=== PATIENT | female | born 1960 | race Caucasian/White ===

== ENCOUNTER 2016-08-31 10:28 | Day surgery (SDC) | payer OTHER ==
--- NOTE | 2016-08-23 12:07 | GHP ---
[f rep st] PREOP HISTORY AND PHYSICAL DATE OF SURGERY: Will be 08/31/2016 at 12:00 p.m. SURGERY TO BE PERFORMED: Hysteroscopy, dilation and curettage, polypectomy with morcellator. DIAGNOSIS: Postmenopausal bleeding and endometrial polyp. SURGEON: Dr. Anali Mabry. HISTORY OF PRESENT ILLNESS: The patient is a 56-year-old, 1, para 1-0-0 -1, who has been postmenopausal since 2011. She was doing well, she is not on any systemic hormone replacement therapy, when she began having an episode of vaginal bleeding approximately 2 weeks ago. The bleeding started and it was heavy, bright red like a period, needing to use a pad for several days. No clots. No cramps. Then it turned into a slight trickle and spotting. She had an ultrasound for evaluation. The ultrasound revealed a large hypoechoic mass in the endometrium that was 2.0 x 1.8 x 1.8 cm. It had a feeder vessel. It looked like an endometrial polyp. Other than that, her ultrasound was normal. Overall, endometrial thickness was 1.25 cm. Bilateral ovaries were normal. There was no free fluid. Therefore, the recommendation is to proceed with hysteroscopy, dilation and curettage, polypectomy for diagnosis and treatment of her postmenopausal bleeding. Patient has had no gynecological problems prior to this. She had a normal menstrual triad, a normal menstrual cycle throughout her life until she stopped having them in 2011. She had mild menopausal systemic symptoms and declined hormone replacement therapy, systemic. Two years ago she developed significant vulvovaginal atrophy and dyspareunia, and she was started on topical Estrace cream, which has helped her dramatically. She continues to use this 2 times a week. But, she has not had any bleeding episodes prior to last week or any other indications of problems. PAST OBSTETRICAL HISTORY: She had 1 vaginal delivery of a viable male who was 2 pounds. He was delivered secondary to severe preeclampsia at 28 weeks. That was her only . PAST MEDICAL HISTORY: Significant for hyperlipidemia, which she has controlled with atorvastatin, and Prilosec which she takes for GERD, and the atrophic vaginitis. Those are her only medical problems. SURGICAL HISTORY: She has a history of a cholecystectomy in 2004. She had Mohs surgery on her face last December for a basal cell. No other surgical history. ALLERGIES: Include Nexium, which she gets stomach upset. CURRENT MEDICATIONS: Include: Atorvastatin 10 mg daily. Prilosec over-the- counter. Multivitamins. Estrace cream 1 g 2 times a week. SOCIAL HISTORY: She is . She lives with her and her 19-year- old son. She denies tobacco, alcohol, and drug use. She has moderate caffeine use. 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 FAMILY HISTORY: Her dad of coronary artery disease. Her mother of Alzheimer's and dementia complications. No cancer history in the family or any other significant family history. REVIEW OF SYSTEMS: A 10-point review of systems is negative. The only thing significant is for postmenopausal bleeding episodes and spotting. She has negative systemic symptoms, cardiovascular systems, respiratory symptoms, gastrointestinal symptoms, psychological symptoms, skin problems, or any other complaints. OBJECTIVE: VITAL SIGNS: Today, her height is 5 feet 4-1/2 inches. Weight is 121. Blood pressure 102/68 with a BMI of 20. GENERAL: She is a well-developed , well-nourished white female. No acute distress. LUNGS: Clear to auscultation bilaterally. HEART: Regular rate and rhythm. No murmurs. ABDOMEN: Soft, nontender, nondistended. Normal bowel sounds. PELVIC: Normal external genitalia. Mild vaginal atrophy. Normal cervix. No bleeding visualized. Uterus is mobile, small, anteverted, anteflexed. No mass is palpated. No adnexal masses palpated. Nontender. EXTREMITIES: Normal. ASSESSMENT/PLAN: A 56-year-old, 1, para 1-0-0-1, with an episode of postmenopausal bleeding. Ultrasound significant for a large endometrial polyp. This needs to be removed for definitive diagnosis, as well as treatment for her postmenopausal bleeding. The patient was consented today for hysteroscopy, dilation and curettage, and polypectomy. She understood the risks and benefits of the procedure. The risks including bleeding, infection, damage to uterus including possible risk of perforation, damage to other organs if perforation were to occur, risk of electrolyte imbalances and need for additional procedures at a later time. She understood these risks and benefits and agreed to proceed. /[id number]/MODL MTDD
[2016-08-31] MEDS ORDERED: LR 1,000 ML IV ONE (11:06)
[2016-08-31] MEDS ORDERED: SCOPOLAMINE HYDROBROMIDE 1.5 MG PATCH TD ONE (11:30)
[2016-08-31] MEDS ORDERED: fentaNYL 100 MCG/2 ML INJ ONE (11:55)
[2016-08-31] MEDS ORDERED: SILVER NITRATE APPLICATOR 1 APPL TP ONE ×2 (11:59→13:26)
[2016-08-31] MEDS ORDERED: MIDAZOLAM 2 MG/2 ML VIAL ONE (12:06)
--- NOTE | 2016-08-31 19:00 | GOP ---
[f rep st] OPERATIVE REPORT DATE OF OPERATION: 08/31/2016 SURGEON: Anali Mabry MD ANESTHESIA: General with LMA. ANESTHESIOLOGIST: Norm Catalan MD PREOPERATIVE DIAGNOSIS: Postmenopausal bleeding and endometrial polyp. POSTOPERATIVE DIAGNOSIS: Preoperative diagnosis postoperative and likely endometrial submucosal fib roid. PROCEDURE PERFORMED: Hysteroscopy, dilation and curettage, and myomectomy with morcellator. FINDINGS: INDICATIONS: Ninoska is a 56-year-old, 1, para 1-0-0-1, who has been postmenopausal since . She was doing well, was not symptomatic, and not on hormone replacement therapy, when she began having episodes of vaginal bleeding approximately 2 weeks prior to presentation. Bleeding started h eavy, bright red, like a period; needed to use a pad for several days. No clots. No cramps. Then it turned into spotting. She had an ultrasound for evaluation. Ultrasound revealed a large hypoech oic mass in the endometrium that was 2.0 x 1.8 x 1.8 cm with a feeder vessel; appeared to be an endo metrial polyp. Other than that, ultrasound was normal. Overall endometrial thickness was 1.25 cm, and ovaries were fine. Because of the mass in a postmenopausal female, the recommendation was made to proceed with a hysteroscopy, D and C, and polypectomy with morcellator for diagnosis and treatmen t. Patient was consented for the procedure. She understood the risks and benefits with the risks i ncluding bleeding, infection, damage to the uterus, including possible risk of perforation with risk of injury to other organs if perforation were to occur, risk of electrolyte abnormalities, and need for additional procedures. She understood these risks and benefits and agreed to proceed. DESCRIPTION OF PROCEDURE: Patient was taken to the operating room where she was placed under genera l anesthesia, and an LMA was placed without difficulty. She was prepped and draped in the dorsal li thotomy position, and she had previously drained her bladder. After a WHO time-out was performed, a n open-sided speculum was placed in the vagina, and a single-tooth tenaculum was used to grasp the a nterior lip of the cervix and straighten deflection. The uterus sounded to 8 cm. The cervix then w as progressively dilated with Dalton dilators to a #6. The TruClear small hysteroscope was placed an d advanced from the cervix to the fundus, and an inspection of the endometrial cavity was made. The re was a large mass in the endometrial cavity that appeared to be a submucosal fibroid. Both tubal ostia were visualized. There were no other gross abnormalities in the uterus. The polyp blade was placed through the operative chamber and window lock was performed. I attempted to morcellate the mass with the polyp blade; however, due to the size and the size and hardness of the mass, polyp blade was ineffective. We then removed the scope and switched to the operative scop e. I progressively dilated her to a #9. The obturator was placed from the cervix and advanced to t he fundus, and the operative scope was then placed through the truck crane operator. We then changed to the rec iprocating blade. Window lock was performed, and with the reciprocating blade under direct visualiz ation, morcellation was performed of the entire endometrial (presumed to be) fibroid. This was all done under direct visualization and without difficulty. There was a small area at the top of the fu ndus, near the right tubal ostia, that was also morcellated along the surface. The hysteroscope was then removed. Sharp curettage was performed in a clockwise fashion until a gri tty texture was palpated throughout the entire uterus, and hemostasis was assured. The single-tooth tenaculum was removed, and the small areas of bleeding from the site were cauterized with silver ni trate. Patient tolerated the procedure well. Sponge, lap, needle, and instrument counts were corre ct x3. Patient went to the recovery room in good condition. Estimated blood loss for the procedure was less than 20 cc. URINE OUTPUT: Not measured. IV FLUIDS: 800 cc. PATHOLOGIC SPECIMEN: Will be endometrial mass (presumed submucosal fibroid) and endometrial curetti ngs. /[id number]/MODL
== END 2016-08-31 15:30 | disposition home or self-care (01) ==
LOC: FSGY 10:28
PROVIDERS: ATTEND Obstetrics & Gynecology
PROC: 0UB98ZX Excision of Uterus, Via Natural or Artificial Opening Endoscopic, Diagnostic (ICD-10-PCS; principal; 2016-08-31 12:00)
DX: D25.0 Submucous leiomyoma of uterus (principal); E78.5 Hyperlipidemia, unspecified; K21.9 Gastro-esophageal reflux disease without esophagitis; Z85.828 Personal history of other malignant neoplasm of skin
CPT/HCPCS: 58558; C1782; J2250; J3010

== ENCOUNTER → 2017-02-06 | Outpatient (CLI) | payer OTHER | LOC: FIMAGING 12:46 | PROVIDERS: ATTEND Obstetrics & Gynecology | DX: Z12.31 Encounter for screening mammogram for malignant neoplasm of breast (principal) | CPT/HCPCS: G0202 ==

== ENCOUNTER → 2017-02-13 | Outpatient (CLI) | payer OTHER | LOC: FIMAGING 09:26 | PROVIDERS: ATTEND Obstetrics & Gynecology | DX: R92.8 Other abnormal and inconclusive findings on diagnostic imaging of breast (principal) | CPT/HCPCS: G0206 ==

== ENCOUNTER → 2017-08-14 | Outpatient (CLI) | payer OTHER | LOC: FIMAGING 12:12 | PROVIDERS: ATTEND Obstetrics & Gynecology | DX: N60.41 Mammary duct ectasia of right breast (principal) ==

== ENCOUNTER → 2017-10-12 | Outpatient (CLI) | payer OTHER | LOC: FIMAGING 10:15 | PROVIDERS: ATTEND Family Medicine | DX: Z13.820 Encounter for screening for osteoporosis (principal); M85.89 Other specified disorders of bone density and structure, multiple sites; Z78.0 Asymptomatic menopausal state ==

== ENCOUNTER → 2018-02-12 | Outpatient (CLI) | payer OTHER | LOC: FIMAGING 12:18 | PROVIDERS: ATTEND Obstetrics & Gynecology | DX: Z12.31 Encounter for screening mammogram for malignant neoplasm of breast (principal) ==